=== PATIENT | female | born 1975 | race Caucasian/White ===

== ENCOUNTER 2018-08-05 16:50 | Outpatient (CLI) | payer SELFPAY ==
[2018-08-05 17:22] LABS: BASOPHILS # (AUTO) 0.1 10^3/uL (0.0-0.1); EOSINOPHILS # (AUTO) 0.2 10^3/uL (0.0-0.7); EOSINOPHILS % (AUTO) 2.3 %; HGB - HEMOGLOBIN 15.3 g/dL (12.0-16.0); LYMPHOCYTES # (AUTO) 2.4 10^3/uL (1.5-3.5); LYMPHOCYTES % (AUTO) 24.7 %; MEAN CORPUSCULAR HEMOGLOBIN 27.3 pg (27.0-31.0); MEAN CORPUSCULAR HGB CONC 32.7 g/dL (32.0-36.0); MEAN CORPUSCULAR VOLUME 83.3 fL (81.0-99.0); MEAN PLATELET VOLUME 10.8 fL (7.9-10.8); MONOCYTES # (AUTO) 0.6 10^3/uL (0.0-1.0); MONOCYTES % (AUTO) 6.6 %; NEUTROPHILS # (AUTO) 6.3 10^3/uL (1.5-6.6); NEUTROPHILS % (AUTO) 65.4 %; PLT - PLATELET COUNT 194 10^3/uL (130-450); RED BLOOD COUNT 5.59 10^6/uL (4.20-5.40); RED CELL DISTRIBUTION WIDTH 14.4 % (12.0-15.0); WHITE BLOOD COUNT 9.6 x10^3/uL (4.8-10.8)
[2018-08-05 17:38] LABS: HB2 TOTAL 16.4 g/dL; HEMOGLOBIN A1C 2.11 g/dL; HEMOGLOBIN A1C % 13.9 % (4.6-6.2)
[2018-08-05 17:39] LABS: ALBUMIN 3.9 g/dL (3.2-5.5); ALBUMIN/GLOBULIN RATIO 1.1 (1.0-2.2); ALKALINE PHOSPHATASE 169 IU/L (42-121); ALT ALANINE AMINOTRANSFERASE 39 IU/L (10-60); AMYLASE 32 U/L (28-100); AST ASPARTATE AMINOTRANSFERASE 30 IU/L (10-42); BILIRUBIN,TOTAL 1.3 mg/dL (0.2-1.0); BUN - BLOOD UREA NITROGEN 9 mg/dL (6-20); CALCIUM 9.2 mg/dL (8.5-10.3); CARBON DIOXIDE - CO2 26 mmol/L (21-32); CHLORIDE 91 mmol/L (101-111); CHOL/HDL RATIO 3.2 (<4.4); CHOLESTEROL 215 mg/dL; CREATININE 0.6 mg/dL (0.4-1.0); GFR - MDRD 110 (>89); GLUCOSE 381 mg/dL (70-100); HDL CHOLESTEROL 68 mg/dL; LDL CHOLESTEROL,CALCULATED 118 mg/dL; LDL/HDL RATIO 1.7 (<4.4); LIPASE 22 U/L (22-51); SODIUM 131 mmol/L (135-145); TOTAL PROTEIN 7.4 g/dL (6.7-8.2); VLDL CHOLESTEROL 29 mg/dL
== END 2018-08-05 16:51 | disposition home or self-care (01) ==
LOC: LAB 16:50
PROVIDERS: ATTEND Specialist
DX: I10 Essential (primary) hypertension (principal); E11.9 Type 2 diabetes mellitus without complications
CPT/HCPCS: 36415; 80053; 80061; 82150; 83036; 83690; 83721; 84443; 85025

== ENCOUNTER 2018-10-16 16:47 | Outpatient (CLI) | payer SELFPAY ==
--- NOTE | 2018-10-16 17:32 | XRAY Report ---
Reason: PRODUCTIVE COUGH, FATIGUE, DM II Procedure Date: 10/16/2018 Accession Number: [id number] / [id number] Procedure: XR - Chest 2 View X-Ray CPT Code: 06188 FULL RESULT: EXAM: CHEST RADIOGRAPHY EXAM DATE: 10/16/2018 05:04 PM. CLINICAL HISTORY: PRODUCTIVE COUGH, FATIGUE, DM II. COMPARISON: None. TECHNIQUE: 2 views. FINDINGS: FINDINGS: Lungs/Pleura: Patchy opacification in the right lower lobe. Left lung is grossly clear. No large effusion or pneumothorax. No pulmonary edema. Mediastinum: Heart and mediastinal contours are unremarkable. Other: None. IMPRESSION: Right lower lobe pneumonia. [facility]
[2018-10-16 17:35] LABS: BASOPHILS # (AUTO) 0.1 10^3/uL (0.0-0.1); BASOPHILS % (AUTO) 0.4 %; EOSINOPHILS # (AUTO) 0.2 10^3/uL (0.0-0.7); EOSINOPHILS % (AUTO) 1.7 %; HGB - HEMOGLOBIN 14.1 g/dL (12.0-16.0); LYMPHOCYTES # (AUTO) 2.1 10^3/uL (1.5-3.5); MEAN CORPUSCULAR HEMOGLOBIN 27.2 pg (27.0-31.0); MEAN CORPUSCULAR HGB CONC 32.7 g/dL (32.0-36.0); MEAN CORPUSCULAR VOLUME 83.2 fL (81.0-99.0); MEAN PLATELET VOLUME 12.8 fL (7.9-10.8); MONOCYTES # (AUTO) 1.1 10^3/uL (0.0-1.0); MONOCYTES % (AUTO) 8.4 %; NEUTROPHILS # (AUTO) 9.5 10^3/uL (1.5-6.6); PLT - PLATELET COUNT 273 10^3/uL (130-450); RED BLOOD COUNT 5.18 10^6/uL (4.20-5.40)
[2018-10-16 17:38] LABS: ALBUMIN 3.7 g/dL (3.2-5.5); ALBUMIN/GLOBULIN RATIO 0.9 (1.0-2.2); BILIRUBIN,TOTAL 1.1 mg/dL (0.2-1.0); CALCIUM 8.9 mg/dL (8.5-10.3); CREATININE 0.9 mg/dL (0.4-1.0); TOTAL PROTEIN 7.8 g/dL (6.7-8.2)
== END 2018-10-16 16:48 | disposition home or self-care (01) ==
LOC: DI 16:47
PROVIDERS: ATTEND Physician Assistant Medical
DX: J18.1 Lobar pneumonia, unspecified organism (principal); R53.83 Other fatigue; E11.65 Type 2 diabetes mellitus with hyperglycemia; R05 Cough; R00.0 Tachycardia, unspecified
CPT/HCPCS: 36415; 71046; 80053; 82150; 83690; 85025

== ENCOUNTER 2018-12-08 14:47 | Emergency (ER) | payer OTHER ==
[2018-12-08 15:24] LABS: BASOPHILS # (AUTO) 0.1 10^3/uL (0.0-0.1); BASOPHILS % (AUTO) 0.4 %; EOSINOPHILS # (AUTO) 0.2 10^3/uL (0.0-0.7); EOSINOPHILS % (AUTO) 1.7 %; HGB - HEMOGLOBIN 15.1 g/dL (12.0-16.0); LYMPHOCYTES # (AUTO) 2.8 10^3/uL (1.5-3.5); LYMPHOCYTES % (AUTO) 24.1 %; MEAN CORPUSCULAR HEMOGLOBIN 26.8 pg (27.0-31.0); MEAN CORPUSCULAR HGB CONC 32.4 g/dL (32.0-36.0); MEAN CORPUSCULAR VOLUME 82.8 fL (81.0-99.0); MEAN PLATELET VOLUME 11.8 fL (7.9-10.8); MONOCYTES # (AUTO) 0.7 10^3/uL (0.0-1.0); MONOCYTES % (AUTO) 6.3 %; NEUTROPHILS # (AUTO) 7.9 10^3/uL (1.5-6.6); NEUTROPHILS % (AUTO) 67.1 %; PLT - PLATELET COUNT 358 10^3/uL (130-450); RED BLOOD COUNT 5.63 10^6/uL (4.20-5.40); RED CELL DISTRIBUTION WIDTH 13.3 % (12.0-15.0); WHITE BLOOD COUNT 11.7 x10^3/uL (4.8-10.8)
[2018-12-08 15:25] LABS: GLUCOSE, URINE (UA) >=1000 mg/dL (NEGATIVE); KETONES,URINE (UA) 15 mg/dL (NEGATIVE); LEUKOCYTE ESTERASE, URINE NEGATIVE (NEGATIVE); NITRITE,URINE NEGATIVE (NEGATIVE); OCCULT BLOOD,URINE NEGATIVE (NEGATIVE); PROTEIN,URINE TRACE mg/dL (NEGATIVE); UROBILINOGEN,URINE 0.2 (NORMAL) E.U./dL (NORMAL)
[2018-12-08 15:30] LABS: BILIRUBIN,URINE NEGATIVE (NEGATIVE); CLARITY,URINE CLEAR (CLEAR); HCG UR QUAL NEGATIVE; ICTOTEST,URINE NEGATIVE
[2018-12-08 15:39] LABS: ALBUMIN 4.5 g/dL (3.2-5.5); ALBUMIN/GLOBULIN RATIO 1.1 (1.0-2.2); BILIRUBIN,TOTAL 1.7 mg/dL (0.2-1.0); CALCIUM 9.8 mg/dL (8.5-10.3); TOTAL PROTEIN 8.5 g/dL (6.7-8.2)
--- NOTE | 2018-12-08 15:59 | ED Physician Documentation ---
History of Present Illness - Stated complaint Stated Complaint: NAUSEA/FEMALE - Chief complaint Chief Complaint: Abd Pain - Additonal information Additional information: This is a 43-year-old female with a history of a LAP-BAND, as well as diabetes, who presents with nausea vomiting and diarrhea for 2 days. Patient states 2 days ago she began developing some vomiting and diarrhea, she went to work and she was having bouts of diarrhea pretty frequently throughout the day. These are nonbloody. These seem to subside slightly but returned today, along with some abdominal pain which is intermittent and can be sharp and severe at times. The pain seems to move around a little somewhat but is more in the mid abdomen. At this time it is mild. She has vomited multiple times, this is nonbloody and nonbilious. She denies fever. No chest pain or shortness of breath. No dysuria. Patient states that she has follow-up with her primary care provider about her recently diagnosed diabetes, and she has had tachycardia on all of her visits, her heart rate is usually around 110. Review of Systems Constitutional: denies: Fever Cardiac: denies: Chest pain / pressure Respiratory: denies: Dyspnea GI: reports: Abdominal Pain, Nausea, Vomiting PD PAST MEDICAL HISTORY - Past Medical History Endocrine/Autoimmune: Type 2 diabetes - Past Surgical History General: Cholecystectomy, Other (Lap band) Ortho: Spine surgery HEENT: Tonsil/Adenoidectomy - Present Medications Home Medications: Ambulatory Orders Medication Instructions Recorded Confirmed Lisinopril [Prinivil] 20 mg ORAL DAILY 12/08/18 12/08/18 Ondansetron Odt [Zofran] 4 mg TL Q6H PRN #10 tablet 12/08/18 metFORMIN [Glucophage] 850 mg PO TID 12/08/18 12/08/18 - Allergies Allergies/Adverse Reactions: Allergies Allergy/AdvReac Type Severity Reaction Status Date / Time No Known Drug Allergies Allergy Verified 12/08/18 14:56 - Social History Does the pt smoke?: No Smoking Status: Never smoker Does the pt drink ETOH?: No Does the pt have substance abuse?: No PD ED PE NORMAL - Vitals Vital signs reviewed: Yes - General General: Alert and oriented X 3 - HEENT HEENT: PERRL - Respiratory Respiratory: Clear bilaterally - Abdomen Abdomen: Other (There is mild left upper quadrant tenderness to palpation, the remainder the abdomen is nontender. Specifically no right lower quadrant tenderness to deep palpation. There is no guarding.) - Derm Derm: Warm and dry - Extremities Extremities: No deformity - Neuro Neuro: Alert and oriented X 3 - Psych Psych: Normal mood, Normal affect Results - Vitals Vitals: Vital Signs - 24 hr 12/08/18 12/08/18 14:53 15:57 Temperature 36.8 C Heart Rate 126 H 116 H Respiratory 18 18 Rate Blood Pressure 126/92 H 118/86 H O2 Saturation 96 99 Oxygen O2 Source Room air - Labs Labs: Laboratory Tests 12/08/18 12/08/18 12/08/18 15:00 15:16 15:16 WBC 11.7 H RBC 5.63 H Hgb 15.1 Hct 46.6 MCV 82.8 MCH 26.8 L MCHC 32.4 RDW 13.3 Plt Count 358 MPV 11.8 H Neut # (Auto) 7.9 H Lymph # (Auto) 2.8 [place] # (Auto) 0.7 Eos # (Auto) 0.2 Baso # (Auto) 0.1 Absolute Nucleated RBC 0.00 Nucleated RBC % 0.0 Sodium 139 Potassium 4.0 Chloride 98 L Carbon Dioxide 27 Anion Gap 14.0 H BUN 18 Creatinine 1.0 Estimated GFR (MDRD) 61 L Glucose 240 H Calcium 9.8 Total Bilirubin 1.7 H AST 23 ALT 22 Alkaline Phosphatase 77 Total Protein 8.5 H Albumin 4.5 Globulin 4.0 Albumin/Globulin Ratio 1.1 Lipase 21 L Urine Color YELLOW Urine Clarity CLEAR Urine pH 5.0 Ur Specific [place] >=1.030 H Urine Protein TRACE Urine Glucose (UA) >=1000 H Urine Ketones 15 H Urine Occult Blood NEGATIVE Urine Nitrite NEGATIVE Urine Bilirubin NEGATIVE Urine Urobilinogen 0.2 (NORMAL) Ur Leukocyte Esterase NEGATIVE Ur Microscopic Review NOT INDICATED Urine Culture Comments NOT INDICATED Urine HCG, Qual NEGATIVE PD MEDICAL DECISION MAKING - ED course Complexity details: considered differential (Gastroenteritis, PUD, appendicitis, pancreatitis, UTI, pyelonephritis) ED course: On exam patient is uncomfortable appearing but nontoxic, her abdomen is benign, she has no focal right lower quadrant pain, no right upper quadrant tenderness. Labs revealed a mild leukocytosis, And somewhat elevated glucose at 230. Her bilirubin is very slightly elevated, however she has no tenderness in her right upper quadrant, she had a cholecystectomy, her LFTs are normal, I doubt biliary pathology at this time. Bicarbonate is normal, there are no signs of DKA. Urinalysis shows glucosuria, but no signs of infection. Patient was given Zofran, and observed in the emergency department. She was able to drink fluids without vomiting, and felt better after treatment. She appears to have a viral gastroenteritis, as there is gastroenteritis in the community right now, her abdomen is nontender, and she has vomiting and diarrhea. Patient does have some tachycardia but she states that she is always tachycardic when she is feeling well, this is her baseline. I discussed her work-up with the patient, prescribed her Zofran, recommended supportive care, and reviewed return precautions including new, worsening, or changing abdominal pain, blood in the vomit or stool, vomiting despite Zofran, or any other concerning symptoms. I also recommended follow-up with her primary care provider. She appears hydrated at this time, and feels safe and well enough to go home. Patient agrees with this plan and was discharged home. Departure - Departure Disposition: 01 Home, Self Care Clinical Impression: Gastroenteritis Condition: Good Instructions: ED Gastroenteritis Viral Follow-Up: Rajendra Spicer DO [Primary Care Provider] - Within 1 week (With any persistent symptoms) Prescriptions: Ondansetron Odt [Zofran] 4 mg TL Q6H PRN #10 tablet PRN Reason: Nausea / Vomiting Comments: You were seen today for vomiting, diarrhea, and abdominal pain. This is likely a gastroenteritis, there has been viral gastroenteritis going around the community. Your labs and exam are reassuring at this time, other than your glucose is elevated consistent with your diabetes. Please check your blood sugar frequently, and discuss with your primary care provider if you need to change medications or potentially start insulin in the future. If you develop worsening or changing abdominal pain, vomiting despite the Zofran, or any other concerning symptoms please return to the emergency department. Forms: Activity restrictions
[2018-12-08] MEDS ORDERED: ONDANSETRON 4 MG/2 ML VIAL IVP STA (16:27)
[2018-12-08] MEDS ORDERED: ONDANSETRON ODT 4 MG Prepack 2 TL PRN (17:29)
[2018-12-08 18:23] VITALS: BP 137/93
== END 2018-12-08 18:22 | disposition home or self-care (01) ==
LOC: ED 14:47
DX: K52.9 Noninfective gastroenteritis and colitis, unspecified (principal); E11.65 Type 2 diabetes mellitus with hyperglycemia; Z79.84 Long term (current) use of oral hypoglycemic drugs; R00.0 Tachycardia, unspecified; Z98.84 Bariatric surgery status; Z90.49 Acquired absence of other specified parts of digestive tract
CPT/HCPCS: 36415; 80053; 81001; 81003; 81025; 83690; 85025; 87086; 96374; 99284

== ENCOUNTER 2018-12-25 17:05 | Emergency (ER) | payer OTHER ==
[2018-12-25 17:11] VITALS: BP 165/109
[2018-12-25 17:32] LABS: BASOPHILS % (AUTO) 0.3 %; EOSINOPHILS # (AUTO) 0.1 10^3/uL (0.0-0.7); EOSINOPHILS % (AUTO) 1.3 %; HGB - HEMOGLOBIN 12.7 g/dL (12.0-16.0); LYMPHOCYTES # (AUTO) 1.9 10^3/uL (1.5-3.5); LYMPHOCYTES % (AUTO) 19.1 %; MEAN CORPUSCULAR HEMOGLOBIN 27.4 pg (27.0-31.0); MEAN CORPUSCULAR HGB CONC 32.2 g/dL (32.0-36.0); MEAN CORPUSCULAR VOLUME 85.1 fL (81.0-99.0); MEAN PLATELET VOLUME 11.9 fL (7.9-10.8); MONOCYTES # (AUTO) 0.6 10^3/uL (0.0-1.0); MONOCYTES % (AUTO) 5.9 %; NEUTROPHILS # (AUTO) 7.1 10^3/uL (1.5-6.6); NEUTROPHILS % (AUTO) 72.8 %; PLT - PLATELET COUNT 221 10^3/uL (130-450); RED BLOOD COUNT 4.64 10^6/uL (4.20-5.40); RED CELL DISTRIBUTION WIDTH 13.2 % (12.0-15.0); WHITE BLOOD COUNT 9.8 x10^3/uL (4.8-10.8)
[2018-12-25 17:45] LABS: ALBUMIN 3.8 g/dL (3.2-5.5); ALBUMIN/GLOBULIN RATIO 1.2 (1.0-2.2); BILIRUBIN,TOTAL 0.9 mg/dL (0.2-1.0); CALCIUM 8.7 mg/dL (8.5-10.3); CREATININE 0.6 mg/dL (0.4-1.0); TOTAL PROTEIN 7.1 g/dL (6.7-8.2)
== END 2018-12-25 21:38 | disposition left against medical advice (07) ==
LOC: ED 17:05
DX: Z53.21 Procedure and treatment not carried out due to patient leaving prior to being seen by health care provider (principal)
CPT/HCPCS: 36415; 80053; 83690; 85025

== ENCOUNTER 2019-01-19 11:31 | Emergency (ER) | payer OTHER ==
[2019-01-19] MEDS ORDERED: SODIUM CHLORIDE 0.9% 1,000 ML IV ONE ×4 (12:14→14:43)
[2019-01-19 12:26] LABS: BASOPHILS # (AUTO) 0.1 10^3/uL (0.0-0.1); BASOPHILS % (AUTO) 0.6 %; EOSINOPHILS # (AUTO) 0.1 10^3/uL (0.0-0.7); EOSINOPHILS % (AUTO) 0.9 %; HGB - HEMOGLOBIN 14.6 g/dL (12.0-16.0); LYMPHOCYTES # (AUTO) 2.4 10^3/uL (1.5-3.5); LYMPHOCYTES % (AUTO) 28.3 %; MEAN CORPUSCULAR HEMOGLOBIN 27.2 pg (27.0-31.0); MEAN CORPUSCULAR HGB CONC 33.3 g/dL (32.0-36.0); MEAN CORPUSCULAR VOLUME 81.6 fL (81.0-99.0); MEAN PLATELET VOLUME 13.6 fL (7.9-10.8); MONOCYTES # (AUTO) 0.8 10^3/uL (0.0-1.0); MONOCYTES % (AUTO) 8.8 %; NEUTROPHILS # (AUTO) 5.2 10^3/uL (1.5-6.6); NEUTROPHILS % (AUTO) 60.9 %; PLT - PLATELET COUNT 216 10^3/uL (130-450); RED BLOOD COUNT 5.37 10^6/uL (4.20-5.40); RED CELL DISTRIBUTION WIDTH 13.5 % (12.0-15.0); WHITE BLOOD COUNT 8.5 x10^3/uL (4.8-10.8)
[2019-01-19 12:32] LABS: ALBUMIN 4.5 g/dL (3.2-5.5); ALBUMIN/GLOBULIN RATIO 1.4 (1.0-2.2); ALKALINE PHOSPHATASE 49 IU/L (42-121); ALT ALANINE AMINOTRANSFERASE 17 IU/L (10-60); AST ASPARTATE AMINOTRANSFERASE 19 IU/L (10-42); BILIRUBIN,TOTAL 2.5 mg/dL (0.2-1.0); BUN - BLOOD UREA NITROGEN 23 mg/dL (6-20); CALCIUM 9.3 mg/dL (8.5-10.3); CARBON DIOXIDE - CO2 28 mmol/L (21-32); CHLORIDE 91 mmol/L (101-111); CREATININE 1.2 mg/dL (0.4-1.0); GFR - MDRD 49 (>89); GLUCOSE 210 mg/dL (70-100); LIPASE 25 U/L (22-51); SODIUM 134 mmol/L (135-145); TOTAL PROTEIN 7.7 g/dL (6.7-8.2)
--- NOTE | 2019-01-19 12:32 | ED Physician Documentation ---
History of Present Illness - Stated complaint Stated Complaint: N/V - Chief complaint Chief Complaint: Abd Pain - History obtained from History obtained from: Patient - History of Present Illness Pain level max: 5 Pain level now: 3 - Additonal information Additional information: 43-year-old female states that she was diagnosed with diabetes approximately 6 months ago. Since that time is had difficulty controlling her blood sugars. States that her normal blood sugars 2-300. States that her last hemoglobin A1c was 13. She states that she has had ketones in her urine today. She has not been feeling well for the past several days. Nausea and vomiting. States she cannot eat solid food, only tolerating liquid shakes like Glucerna. Has an appointment with her doctor next week. She is currently on metformin 850 mg 3 times a day. Has a history of a LAP-BAND procedure in 2006. Nothing makes this better or worse. 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 01/19/19 Ondansetron Odt [Zofran] 4 mg TL Q6H PRN #10 tablet 01/19/19 - Allergies Allergies/Adverse Reactions: Allergies Allergy/AdvReac Type Severity Reaction Status Date / Time Phenergan IV AdvReac Unknown Uncoded 01/19/19 16:44 - Social History Does the pt smoke?: No Smoking Status: Never smoker Does the pt drink ETOH?: No Does the pt have substance abuse?: No PD ED PE NORMAL - Vitals Vital signs reviewed: Yes - General General: Alert and oriented X 3, No acute distress - HEENT HEENT: PERRL, Other (Dry lips and tongue) - Neck Neck: Supple, no meningeal sign - Cardiac Cardiac: RRR, Strong equal pulses - Respiratory Respiratory: No respiratory distress, Clear bilaterally - Abdomen Abdomen: Soft, Non distended, Other (Mild tenderness to palpation epigastric. No peritoneal signs.) - Back Back: No CVA TTP, No spinal TTP - Derm Derm: Warm and dry - Extremities Extremities: No edema - Neuro Neuro: Alert and oriented X 3 - Psych Psych: Normal mood, Normal affect Results - Vitals Vitals: Vital Signs - 24 hr 01/19/19 01/19/19 01/19/19 11:44 12:30 13:00 Temperature 36.7 C Heart Rate 118 H 114 H 108 H Respiratory 18 18 16 Rate Blood Pressure 144/91 H 163/103 H 166/104 H O2 Saturation 100 99 100 01/19/19 01/19/19 01/19/19 13:30 14:22 15:00 Temperature Heart Rate 110 H 86 109 H Respiratory 16 18 16 Rate Blood Pressure 170/107 H 171/102 H 164/107 H O2 Saturation 100 98 100 01/19/19 01/19/19 01/19/19 15:30 16:00 16:30 Temperature Heart Rate 120 H 112 H 115 H Respiratory 20 20 18 Rate Blood Pressure 165/113 H 159/108 H 154/112 H O2 Saturation 100 100 100 01/19/19 19:12 Temperature 37.1 C Heart Rate 108 H Respiratory 20 Rate Blood Pressure 150/105 H O2 Saturation 99 Oxygen O2 Source Room air - Labs Labs: Laboratory Tests 01/19/19 01/19/19 01/19/19 11:59 11:59 12:21 WBC 8.5 RBC 5.37 Hgb 14.6 Hct 43.8 MCV 81.6 MCH 27.2 MCHC 33.3 RDW 13.5 Plt Count 216 MPV 13.6 H Neut # (Auto) 5.2 Lymph # (Auto) 2.4 [place] # (Auto) 0.8 Eos # (Auto) 0.1 Baso # (Auto) 0.1 Absolute Nucleated RBC 0.00 Nucleated RBC % 0.0 VBG pH 7.400 VBG pCO2 44.4 VBG pO2 33.7 VBG HCO3 26.9 VBG Total CO2 28.2 VBG O2 Saturation 66.6 VBG Base Excess 1.6 Sodium 134 L Potassium 3.1 L Chloride 91 L Carbon Dioxide 28 Anion Gap 15.0 H BUN 23 H Creatinine 1.2 H Estimated GFR (MDRD) 49 L Glucose 210 H POC Whole Bld Glucose Glycated Hemoglobin Estim Average Glucose Calcium 9.3 Total Bilirubin 2.5 H AST 19 ALT 17 Alkaline Phosphatase 49 Total Protein 7.7 Albumin 4.5 Globulin 3.2 Albumin/Globulin Ratio 1.4 Lipase 25 Urine Color Urine Clarity Urine pH Ur Specific [place] Urine Protein Urine Glucose (UA) Urine Ketones Urine Occult Blood Urine Nitrite Urine Bilirubin Urine Urobilinogen Ur Leukocyte Esterase Ur Microscopic Review Urine Culture Comments Urine HCG, Qual Serum Ketones SMALL H 01/19/19 01/19/19 01/19/19 12:26 14:20 14:20 WBC RBC Hgb Hct MCV MCH MCHC RDW Plt Count MPV Neut # (Auto) Lymph # (Auto) [place] # (Auto) Eos # (Auto) Baso # (Auto) Absolute Nucleated RBC Nucleated RBC % VBG pH VBG pCO2 VBG pO2 VBG HCO3 VBG Total CO2 VBG O2 Saturation VBG Base Excess Sodium Potassium Chloride Carbon Dioxide Anion Gap BUN Creatinine Estimated GFR (MDRD) Glucose POC Whole Bld Glucose Glycated Hemoglobin 9.7 H Estim Average Glucose 232 H Calcium Total Bilirubin AST ALT Alkaline Phosphatase Total Protein Albumin Globulin Albumin/Globulin Ratio Lipase Urine Color YELLOW Urine Clarity CLEAR Urine pH 5.5 Ur Specific [place] 1.010 1.010 Urine Protein NEGATIVE Urine Glucose (UA) 250 H Urine Ketones 15 H Urine Occult Blood NEGATIVE Urine Nitrite NEGATIVE Urine Bilirubin NEGATIVE Urine Urobilinogen 0.2 (NORMAL) Ur Leukocyte Esterase NEGATIVE Ur Microscopic Review NOT INDICATED Urine Culture Comments NOT INDICATED Urine HCG, Qual NEGATIVE Serum Ketones 01/19/19 01/19/19 15:26 16:47 WBC RBC Hgb Hct MCV MCH MCHC RDW Plt Count MPV Neut # (Auto) Lymph # (Auto) [place] # (Auto) Eos # (Auto) Baso # (Auto) Absolute Nucleated RBC Nucleated RBC % VBG pH VBG pCO2 VBG pO2 VBG HCO3 VBG Total CO2 VBG O2 Saturation VBG Base Excess Sodium Potassium Chloride Carbon Dioxide Anion Gap BUN Creatinine Estimated GFR (MDRD) Glucose POC Whole Bld Glucose 118 H 109 H Glycated Hemoglobin Estim Average Glucose Calcium Total Bilirubin AST ALT Alkaline Phosphatase Total Protein Albumin Globulin Albumin/Globulin Ratio Lipase Urine Color Urine Clarity Urine pH Ur Specific [place] Urine Protein Urine Glucose (UA) Urine Ketones Urine Occult Blood Urine Nitrite Urine Bilirubin Urine Urobilinogen Ur Leukocyte Esterase Ur Microscopic Review Urine Culture Comments Urine HCG, Qual Serum Ketones - Rads (name of study) CT abd/pelvis Radiology: Prelim report reviewed, EMP read contemporaneously, See rad report (No acute abnormality) PD MEDICAL DECISION MAKING - ED course Complexity details: reviewed results, re-evaluated patient, considered differential, d/w patient ED course: Patient has diabetes and hyperglycemia. Feels better after IV fluids, Zofran. Still had nausea and Phenergan was given. This gave her the sensation of restless legs. [place] better after Ativan, Benadryl and walking. She is tolerating p.o. well here. Will prescribe Zofran for home. We will have her follow-up with her doctor next week for further care. Abdomen is soft, nontender nondistended. No acute findings on CT of the abdomen pelvis. She will follow-up with the pulmonary nodules with her doctor. Patient counseled regarding signs and symptoms for which I believe and urgent re-evaluation would be necessary. Patient with good understanding of and agreement to plan and is comfortable going home at this time This document was made in part using voice recognition software. While efforts are made to proofread this document, sound alike and grammatical errors may occur. Departure - Departure Disposition: 01 Home, Self Care Clinical Impression: Hyperglycemia, Dehydration Vomiting Qualifiers: Vomiting type: unspecified Vomiting Intractability: non-intractable Nausea presence: with nausea Qualified Code(s): R11.2 - Nausea with vomiting, unspecified Condition: Good Instructions: ED Dehydration, ED Nausea Vomiting Follow-Up: Rajendra Spicer DO [Primary Care Provider] - Within 3 Days Prescriptions: Esomeprazole Magnesium [Nexium] 40 mg PO DAILY #30 capsule. Ondansetron Odt [Zofran] 4 mg TL Q6H PRN #10 tablet PRN Reason: Nausea / Vomiting Comments: Drink plenty of fluids and rest. Return if you worsen. Follow-up with your doctor for further care. Discharge Date/Time: 01/19/19 19:35
[2019-01-19 12:37] LABS: VBG BASE EXCESS 1.6 mmol/L (-2 - +2); VBG PCO2 44.4 mmHg (41-51); VBG PH 7.4 (7.31-7.41); VBG PO2 33.7 mmHg (25-47); VBG TOTAL CO2 28.2 mmol/L (24-29)
[2019-01-19 12:50] LABS: KETONES, SERUM (ACETEST) SMALL (NEGATIVE)
[2019-01-19] MEDS ORDERED: ONDANSETRON 4 MG/2 ML VIAL IVP STA (13:11)
[2019-01-19 13:13] LABS: HB2 TOTAL 15.4 g/dL; HEMOGLOBIN A1C 1.27 g/dL; HEMOGLOBIN A1C % 9.7 % (4.6-6.2)
[2019-01-19 14:30] LABS: GLUCOSE, URINE (UA) 250 mg/dL (NEGATIVE); KETONES,URINE (UA) 15 mg/dL (NEGATIVE); LEUKOCYTE ESTERASE, URINE NEGATIVE (NEGATIVE); NITRITE,URINE NEGATIVE (NEGATIVE); OCCULT BLOOD,URINE NEGATIVE (NEGATIVE); PH,URINE 5.5 PH (5.0-7.5); PROTEIN,URINE NEGATIVE (NEGATIVE); UROBILINOGEN,URINE 0.2 (NORMAL) E.U./dL (NORMAL)
[2019-01-19 14:35] LABS: BILIRUBIN,URINE NEGATIVE (NEGATIVE); CLARITY,URINE CLEAR (CLEAR); ICTOTEST,URINE NEGATIVE
[2019-01-19 14:36] LABS: HCG UR QUAL NEGATIVE
[2019-01-19] MEDS ORDERED: PROMETHAZINE INJ 25 MG in SODIUM CHLORIDE 0.9% 50 ML IV STA (14:43)
[2019-01-19] MEDS ORDERED: diphenhydrAMINE INJ 50 MG/ML VIAL IVP STA (15:25)
[2019-01-19] MEDS ORDERED: KETOROLAC 30 MG/ML VIAL IVP STA (15:49)
[2019-01-19] MEDS ORDERED: LORazepam 2 MG/ML VIAL IVP STA (16:05)
[2019-01-19] MEDS ORDERED: POTASSIUM CHLORIDE 20 MEQ TABLET PO STA (16:42)
[2019-01-19] MEDS ORDERED: IOVERSOL 320 50 ML VIAL ONE (17:12)
[2019-01-19] MEDS ORDERED: IOVERSOL 320 50 ML VIAL PO ONE (18:17)
--- NOTE | 2019-01-19 19:00 | CT Report ---
Reason: abd pain, vomiting, h/o lap band Procedure Date: 01/19/2019 Accession Number: [id number] / [id number] Procedure: CT - Abdomen/Pelvis W CPT Code: FULL RESULT: EXAM: CT ABDOMEN AND PELVIS EXAM DATE: 01/19/2019 06:16 PM. CLINICAL HISTORY: Abd pain, vomiting, h/o lap band. COMPARISONS: None. TECHNIQUE: Routine helical CT imaging was performed through the abdomen and pelvis. IV contrast: ISOVUE 300 100ML. Enteric contrast: Positive. Reconstructions: Coronal and sagittal. In accordance with CT protocol optimization, one or more of the following dose reduction techniques were utilized for this exam: automated exposure control, adjustment of mA and/or KV based on patient size, or use of iterative reconstructive technique. FINDINGS: There is mild motion artifact. Lung Bases: There is a 0.8 cm groundglass nodule within the right lower lobe (image 1 series 3). There is a 0.7 cm juxtacardiac nodule within the left lower lobe (image 6). Liver: Normal. No masses. Gallbladder/Bile Ducts: The gallbladder is surgically absent. There is no significant bile duct dilatation. Spleen: Normal. Pancreas: No acute pancreatic abnormalities. Adrenal Glands: Normal. Kidneys: Normal. No masses or hydronephrosis. Peritoneal Cavity/Bowel: Gastric lap band is in place. No dilated or thick-walled bowel is seen. There is no intraperitoneal free air or free fluid. There are no enlarged mesenteric or retroperitoneal lymph nodes. The appendix is well visualized and normal. Pelvic Organs: Normal. The bladder and visualized pelvic organs are within normal limits. Vasculature: No aneurysms or other significant abnormality. Bones: Patient has undergone L3-L4 fusion. No acute bony abnormalities are seen. Other: None. IMPRESSION: 1. No acute solid or hollow viscus organ abnormalities to account for the patient's presentation. There is no evidence of bowel obstruction or appendicitis. 2. There are 2 subcentimeter pulmonary nodules within the lung bases. Nonemergent follow-up chest CT is recommended for further evaluation as indicated. [facility]
[2019-01-19 19:13] VITALS: BP 150/105
[2019-01-19] MEDS ORDERED: PANTOPRAZOLE 40 MG VIAL IVP STA (19:17)
== END 2019-01-19 19:35 | disposition home or self-care (01) ==
LOC: ED 11:31
DX: E11.65 Type 2 diabetes mellitus with hyperglycemia (principal); Z79.84 Long term (current) use of oral hypoglycemic drugs; E86.0 Dehydration; R11.2 Nausea with vomiting, unspecified; G25.81 Restless legs syndrome; T42.6X5A Adverse effect of other antiepileptic and sedative-hypnotic drugs, initial encounter; Y92.538 Other ambulatory health services establishments as the place of occurrence of the external cause; Z98.84 Bariatric surgery status
CPT/HCPCS: 36415; 74177; 80053; 81003; 81025; 82009; 82803; 83036; 83690; 85025; 96361; 96365; 96375; 99283; 99285; A9270; J1200; J2060; J7040; 81001; 87086